=== PATIENT | female | born 1950 | race African-American/Black ===

== ENCOUNTER 2017-04-09 12:36 | Emergency (ER) | payer BC ==
--- NOTE | ~2017-04-09 | EKG ---
PATIENT: ERIKA MONTEMAYOR UNIT #: [id number] Ventricular Rate: 73 BPM Atrial Rate: 73 BPM P-R Interval: 136 ms QRS Duration: 94 ms Q-T Interval: 386 ms QTC Calculation(Bezet): 425 ms P Onset: -10 degrees Calculated R Onset: 6 degrees Calculated T Onset: 7 degrees Diagnosis Line: Normal sinus rhythm Diagnosis Line: Inferior infarct , age undetermined Diagnosis Line: Abnormal ECG Diagnosis Line: No previous ECGs available Diagnosis Line: Confirmed by BRIDGER HERNANDEZ MD ([id number]) on Diagnosis Line: 04/10/2017 8:00:36 AM INTERPRETING MD: MARY PAYTON
--- NOTE | ~2017-04-09 | CT71 ---
[facility] A Service of [facility] / [facility] RADIOLOGY TEXT RESULTS PATIENT: ERIKA MONTEMAYOR LOCATION: [facility] : 48 UNIT #: [id number] AGE: [address]: Natasha Paulson MD SEX: F ORDER DR: [id number] [facility]. [place], [place] [address] [id number] MR#: [id number] Acc #: [id number] NAME: ERIKA MONTEMAYOR : 1950 SEX: F STUDY DATE/TIME: 04/09/2017 15:38 UNIT: [facility] ROOM: STUDY DESCRIPTION: CT Head Wo Contrast Attending Physician: Natasha Paulson M.D. Ordering Physician: Natasha Paulson M.D. Primary Care Physician: Woo Jurado M.D. MEDICAL IMAGING REPORT This report is preliminary unless electronic signature is present EXAM CT brain without contrast. HISTORY Dizzy and near syncope today. TECHNIQUE This CT exam was performed with one or more of the following radiation dose reduction techniques: automatic exposure control, adjustment of mA and/or kV according to patient size, and iterative reconstruction. FINDINGS CT brain without contrast demonstrates no intracranial hemorrhage, mass or edema. No midline shift or ventricular dilatation. No extraaxial fluid collection is identified. Sensitivity is slightly limited by motion artifact on several images. IMPRESSION No acute findings. Dictated by... Raciel Meneses M.D. THIS IS AN ELECTRONICALLY VERIFIED REPORT Raciel Meneses M.D. at 04/10/2017 11:19 PM STEPHANIE/tereaz TD: 04/09/2017 18:10 JOB #: [id number] MEDICAL IMAGING REPORT [facility] A Service of [facility] RADIOLOGY TEXT RESULTS PATIENT: ERIKA MONTEMAYOR LOCATION: [facility] : 48 UNIT #: [id number] AGE: [address]: Natasha Paulson MD SEX: F ORDER DR: Page 1 of 1 COPY
[2017-04-09] MEDS ORDERED: HYDROCHLOROTHIA25 MG PO (12:38)
[2017-04-09] MEDS ORDERED: TENORMIN50 MG PO (12:39)
[2017-04-09] MEDS ORDERED: GLUMETZA500 MG PO (12:39)
[2017-04-09] MEDS ORDERED: AMLODIPINE BESY10 MG PO (12:39)
[2017-04-09] MEDS ORDERED: LISINOPRIL20 MG PO (12:39)
[2017-04-09 14:57] LABS: BASOPHIL# 0.1 X10e3 (0-0.3); BASOPHIL% 1.3 % (0-2.5); EOSINOPHIL% 0.7 % (0.0-7.0); HEMOGLOBIN 12.4 gm/dL (12.0-16.0); LYMPHOCYTE# 0.9 X10e3 (1.0-3.5); LYMPHOCYTE% 22.6 % (17.0-45.0); MEAN CELL VOLUME 81.3 FL (83-96); MEAN CORPUSCULAR HEMOGLOBIN 25.2 PG (28-34); MEAN PLATELET VOLUME 9.2 FL (6.5-11.5); MONOCYTE# 0.3 X10e3 (0-1.0); MONOCYTE% 7.1 % (3.0-12.0); NEUTROPHIL# 2.7 X10e3 (1.5-7.1); NEUTROPHIL% 68.3 % (40-75); PLATELET COUNT 193 X10e3 (140-420); RED BLOOD COUNT 4.92 X10e (3.90-5.30); RED CELL DISTRIBUTION WIDTH 13.1 % (11.0-15.5)
[2017-04-09 14:58] LABS: DIFF IND NO
[2017-04-09 15:17] LABS: ALBUMIN SERUM 3.9 g/dL (3.5-5.0); BILIRUBIN, DIRECT 0.1 mg/dL (0.0-0.2); BILIRUBIN,INDIRECT 0.7 mg/dL (0.0-0.9); BILIRUBIN,TOTAL 0.8 mg/dL (0.2-2.0); BUN/CREATININE RATIO 23.75; CALCIUM SERUM 9.5 mg/dL (8.4-10.2); CREATININE SERUM 0.8 mg/dL (0.6-1.4); GLOM FILT RATE Estimated 88.5 mL/min (>60); MAGNESIUM 1.9 mg/dL (1.6-3.0); POTASSIUM 3.7 mmol/L (3.5-5.1); PROTEIN TOTAL SERUM 7.1 g/dL (6.0-8.3)
[2017-04-09 15:33] LABS: URINE SOURCE CLEAN CATCH
[2017-04-09 15:40] LABS: URINE APPEARANCE CLEAR; URINE BILIRUBIN NEG (NEG); URINE BLOOD NEG (NEG); URINE COLOR YELLOW; URINE GLUCOSE NEG (NEG); URINE KETONE NEG (NEG); URINE LEUKOCYTE ESTERASE NEG (NEG); URINE NITRATE NEG (NEG); URINE PH 5.5 (5-8); URINE PROTEIN NEG (NEG); URINE SPECIFIC GRAVITY 1.012 (1.003-1.035); URINE UROBILINOGEN 0.2 MG/DL (NEG)
[2017-04-09 16:14] LABS: CULTURE INDICATED? NO
== END 2017-04-09 17:00 | disposition home or self-care (01) ==
LOC: CED 12:36
PROVIDERS: Student in an Organized Health Care Education/Training Program
DX: H65.93 Unspecified nonsuppurative otitis media, bilateral (principal); E11.9 Type 2 diabetes mellitus without complications; I10 Essential (primary) hypertension; Z79.899 Other long term (current) drug therapy; Z88.0 Allergy status to penicillin
CPT/HCPCS: 36415; 70450; 80048; 80076; 81003; 83735; 85025; 93005; 99284

== ENCOUNTER 2017-06-08 11:20 | Emergency (ER) | payer BC ==
[~2017-06-08] VITALS: Ht 162.6 cm; Wt 112.9 kg
[~2017-06-08 11:20] MED LIST: AMLODIPINE BESY10 MG PO; GLUMETZA500 MG PO; HYDROCHLOROTHIA25 MG PO; LISINOPRIL20 MG PO; TENORMIN50 MG PO
== END 2017-06-08 12:29 | disposition home or self-care (01) ==
LOC: CED 11:20
DX: H81.10 Benign paroxysmal vertigo, unspecified ear (principal); E11.9 Type 2 diabetes mellitus without complications; I10 Essential (primary) hypertension; Z88.0 Allergy status to penicillin
CPT/HCPCS: 99283